=== PATIENT | female | born 2000 | race Caucasian/White ===

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

== ENCOUNTER 2020-06-16 00:20 | Emergency (ER) | payer OTHER ==
[~2020-06-16] VITALS: Ht 167 cm; Wt 64.0 kg
--- NOTE | 2020-06-16 01:00 | ED Neck-Back Pain/Injury ---
General Chief Complaint: Head/Cervical Problems Stated Complaint: NECK PAIN Nursing Triage Note: Pt states she has a "muscle that pops out" in the front of her neck periodically that causes her intense pain and also causes part of her face to go numb. Pt states that this usually only lasts a short time and resolves on its own but this time it last longer than normal; condition resolved in the waiting room of the ER. Source of Information: Patient Exam Limitations: No Limitations History of Present Illness Date Seen by Provider: Jun 16, 2020 Time Seen by Provider: 00:40 Initial Comments Patient presents ER by private conveyance home chief complaint that she felt like one of the muscles in that left front neck popped out of place and she had a burning, stinging sensation going up her neck and her face and sinus on the left side causing her to tear up. She took couple tablets ibuprofen about an hour prior to arrival and the sensation had gone away by the time she arrived in the ER lobby. She says this is happened before several times although never as long as this. She has not seen anybody for it. No significant medical history. She does take control pills. She's having no chest pain shortness of air fever chills cough or inability to swallow fluids. Allergies and Home Medications Allergies Coded Allergies: sulfamethoxazole (Verified Allergy, Unknown, 11/03/19) trimethoprim (Verified Allergy, Unknown, 11/03/19) Patient Home Medication List Home Medication List Reviewed: Yes Review of Systems Constitutional: No chills, No diaphoresis EENTM: No ear discharge, No ear pain Respiratory: No cough, No short of breath Cardiovascular: No chest pain, No edema Gastrointestinal: No abdominal pain, No loss of appetite Genitourinary: No discharge, No dysuria : No Control/STD Prophylaxis: BC Pills Musculoskeletal: see HPI, neck pain All Other Systems Reviewed Negative Unless Noted: Yes Past Xnrrfge-Pyrcex-Ztgpnp Hx Patient Social History Alcohol Use: Denies Use Recreational Drug Use: No Smoking Status: Never a Smoker Recent Foreign Travel: No Contact w/Someone Who Travel: No Recent Infectious Disease Expo: No Recent Hopitalizations: No Ebola Symptoms: Denies Symptoms Listed Seasonal Allergies Seasonal Allergies: No Past Medical History Surgeries: Yes (wisdom teeth) Respiratory: No Cardiac: No Neurological: No Female Reproductive Disorders: Menstrual Problems Genitourinary: No Gastrointestinal: No Musculoskeletal: No Endocrine: No HEENT: No Cancer: No Psychosocial: No Integumentary: Yes (noted small red rash upper and lower ext and torso) Recent Skin Changes Blood Disorders: No Family Medical History No Pertinent Family Hx Physical Exam Vital Signs Vital Signs - First Documented 06/16/20 00:38 Temp 36.8 Pulse 68 Resp 20 B/P (MAP) 141/99 Pulse Ox 99 O2 Delivery Room Air Capillary Refill : Height, Weight, BMI Height: '" Weight: lbs. oz. 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 I do not feel an exaggerated thyroid gland however I suspect perhaps her larynx has bumped against her vagus nerve causing the sensations she experien ashok. I explained this to her and encourage her to follow up with Dr. Luna if the sensations continued. Perhaps an ultrasound of her larynx to rule out tumor on the outpatient side would be helpful with giving her some peace of mind. Encourage Tylenol, NSAIDs and warm, moist heat. While there is no lymphadenopathy perhaps she has some Pharyngeal cleft cyst or other congenital tumor that could be contributing to her symptomatology. Departure Impression Primary Impression: Vagus neuropathy Additional Impression: Irritable larynx Disposition: 01 HOME, SELF-CARE Condition: Stable Departure-Patient Inst. Decision time for Depature: 00:50 Referrals: SHAHNAZ ELMORE MD, DANIEL J MD (PCP/Family) Primary Care Physician Patient Instructions: NO INSTRUCTIONS GIVEN Add. Discharge Instructions: If this continues to bother you then you should follow-up with Dr. Mendez and pursue further workup such as ultrasound imaging of your neck. Alternatively you may follow-up with a ear nose and throat surgeon for consultation. Dr. Elmore is the local ENT. Tylenol 1000 mg every 8 hours as necessary for pain. Ibuprofen 800 mg every 8 hours as necessary for pain. Warm moist heat applied directly over the site as often as necessary for discomfort. Return to the ER if you begin to experience new, worrisome symptoms such as passing out, chest pain, shortness of air, inability to swallow, etc. All discharge instructions reviewed with patient and/or family. Voiced understanding. Copy Copies To 1: SHAHNAZ ELMORE MD; STEFFANY MENDEZ MD, TITUS J Jun 16, 2020 01:00
== END 2020-06-16 01:05 | disposition home or self-care (01) ==
LOC: EDUNIT# 00:20 → ER 00:26
DX: G52.2 Disorders of vagus nerve (principal); J38.7 Other diseases of larynx; Z88.2 Allergy status to sulfonamides; Z88.1 Allergy status to other antibiotic agents
CPT/HCPCS: 99282